=== PATIENT | female | born 1970 | race Caucasian/White ===

== ENCOUNTER 2016-07-24 07:41 | Emergency (ER) | payer BC ==
[~2016-07-24] VITALS: Ht 160 cm; Wt 73.0 kg
[~2016-07-24 07:41] MED LIST: BUSP30TA2 PO; CYAN3INJ IM; ERGO500037 PO; FOLI400T41 PO; IVIG IV; LAMO100T PO; LAMO100T16 PO; ONDA8TAB6 PO; OXYC1TAB3 PO; PANT40TA PO; PREG1CAP28 PO; PROM25TA PO; TPM100 PO; TRAM-10 PO; WARF4TAB PO; WARF6TAB PO
[2016-07-24 07:44] VITALS: TEMP 36.5; Ht 160 cm; Wt 73.0 kg
[2016-07-24] MEDS ORDERED: HYDROmorphone INJ 1 MG/ML SYR IV STA ×2 (07:59→09:33)
[2016-07-24] MEDS ORDERED: CEFTRIAXONE SOD INJ 1 GM ADDVIAL IV STA (07:59)
[2016-07-24] MEDS ORDERED: ONDANSETRON INJ 2 MG/ML 2 ML VIAL IV STA (07:59)
[2016-07-24] MEDS ORDERED: KETOROLAC TROMETHAMINE 30 MG/ML VIAL IV STA (07:59)
[2016-07-24] MEDS ORDERED: SODIUM CHLORIDE 0.9% 1000ML 1,000 ML IV STA ×2 (07:59→09:49)
--- NOTE | 2016-07-24 08:01 | EMERGENCY ROOM VISIT NOTE ---
History Report prepared by Jose: Cyn Barbosa Under the Supervision of: Dr. Riley Strickland M.D. First contact with patient: 07:49 Chief Complaint: ABDOMINAL PAIN Stated Complaint: LOWER ABD. AND BACK PAIN, VOMITING, FREQ. URINE Nursing Triage Summary: pt c/o lower abd pain and back pain on right side. day was urinating blood took pyriudum. had ivig yesterday. hx of kidney stones History of Present Illness The patient is a 46 year old female who presents to the Emergency Room with complaints of worsening abdominal pain for the past 2 days. She rates her discomfort as a 10/10 and notes the pain is located in her lower abdomen and right sided back. She has also been very nauseous but has not vomited. The patient states 2 days ago she started experiencing "severe hematuria". She took Pyridium she had at home, and that provided temporary relief. She had IV-IG administered here at [facility] yesterday for a history of immunodeficiency and states the hematuria has persisted since then. The patient does have a history of kidney stones and notes the pain feels similar. 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 A total of 10 systems reviewed and were otherwise negative. Past Medical & Surgical Medical Problems: (1) ANXIETY STATE NOS (2) Cholecystectomy (3) Clostridium difficile colitis (4) GASTROINTEST HEMORR NOS (5) IGG Deficiency (6) Immunodeficiency disorder (7) INTESTINAL INFECTION DUE TO CLOSTRIDIUM DIFFICILE (8) Left portal vein thrombosis (9) Ulcer Surgical Problems: (1) H/O section (2) H/O oophorectomy Family History Patient reports no known family medical history. Social History Smoking Status: Never Smoker Alcohol Use: none Drug Use: none Marital Status: Housing Status: lives with family Current/Historical Medications Scheduled Buspirone Hcl (Buspirone Hcl), 30 MG PO BID Cyanocobalamin (Vitamin B-12 Inj), 1 ML IM [id number] Docusate Sodium (Colace), 1 CAP PO BID Ergocalciferol (Vitamin D 80422 Unit), 50,000 UNIT PO WK Folic Acid (Folvite), 400 MCG PO QAM Lamotrigine (Lamictal), 200 MG PO HS Lamotrigine (Lamictal), 200 MG PO QAM Pantoprazole (Protonix), 40 MG PO BID Pregabalin (Lyrica), 75 MG PO HS Sennosides (Senokot), 8.6 MG PO HS Sulfa/Trimethoprim (Bactrim Ds 800MG/160MG), 1 TAB PO BID Topiramate (Topiramate), 100 MG PO BID Warfarin Sodium (Coumadin), 4 MG PO Tuesday and Tuesday Warfarin Sodium (Coumadin), 6 MG PO DIRECTED [Ivig], 1 DOSE IV MONTHLY Scheduled PRN Ondansetron Hcl (Zofran), 8 MG PO Q6 PRN for Nausea or Vomiting Oxycodone Ir (Roxicodone Ir), 5 MG PO Q4H PRN for Severe Pain Oxycodone/Acetaminophen 5MG/325MG (Percocet 5MG/325MG), 1-2 TAB PO Q4H PRN for Pain Promethazine (Phenergan), 25 MG PO Q8 PRN for Nausea or Vomiting Tramadol (Ultram), 100 MG PO Q6H PRN for Pain Allergies Coded Allergies: Morphine (Verified Allergy, Severe, HIVES, 07/24/16) WITH INJECTABLE MORPHINE Aspirin (Verified Allergy, Intermediate, HIVES, 07/24/16) Amoxicillin (Verified Allergy, Mild, RASH, 07/24/16) Azithromycin (Verified Allergy, Mild, RASH, 07/24/16) Penicillins (Verified Allergy, Mild, RASH, 07/24/16) Ibuprofen (Verified Allergy, Unknown, Unknown, 07/24/16) Pt reports to RN that she has ibuprofen allergy Corticosteroids (Verified Adverse Reaction, Intermediate, AGGRESSIVE, ) Prednisone (Verified Adverse Reaction, Intermediate, AGGRESSIVE, 07/24/16) Gabapentin (Verified Adverse Reaction, Unknown, HYPERACTIVE, 07/24/16) Venlafaxine (Verified Adverse Reaction, Unknown, memory loss, sleepwalking , 07/24/16) patient Physical Exam Vital Signs Date Time Temp Pulse Resp B/P Pulse Ox O2 Delivery O2 Flow Rate FiO2 07/24/16 10:33 86 18 118/81 96 07/24/16 09:19 93 18 123/77 98 Room Air 07/24/16 07:44 36.5 79 18 89/59 100 Room Air Physical Exam GENERAL: Patient is a healthy-appearing well-nourished HEAD: Normocephalic atraumatic EYES: Ocular movements intact pupils equal and react to light OROPHARYNX mucous membranes are moist no exudates present no erythema or edema present NECK: Supple no nuchal rigidity CHEST: Good equal expansion LUNGS: Clear and equal to auscultation CARDIAC: Normal S1 and S2 ABDOMEN: Soft, slight tenderness in suprapubic area, no guarding BACK: No CVA tenderness EXTREMITIES: No pain upon palpation normal muscle strength in all groups no clubbing cyanosis or edema NEURO: Patient is following commands is answering questions appropriately. Alert and oriented x3 Cranial Nerves 2-12 grossly intact Medical Decision & Procedures ER Provider Diagnostic Interpretation: This X-Ray was reviewed and interpreted by myself and the radiologist. KUB IMPRESSION: Nonobstructed abdominal bowel gas pattern noting moderate colonic fecal retention. Electronically signed by: Shreyas Mcduffie M.D. 07/24/2016 9:02 AM This Ultrasound was reviewed and interpreted by the radiologist and reviewed by myself. ULTRASOUND KIDNEYS AND BLADDER IMPRESSION: 1. There is mild right-sided hydronephrosis. This raises concern for nonobstructing renal calculus; however, no calculi were seen by CT on 03/19/2016. 2. The left kidney is normal in size and without hydronephrosis. 3. The bladder was decompressed and could not be evaluated. Electronically signed by: Shreyas Mcduffie M.D. 07/24/2016 9:33 AM Laboratory Results 07/24/16 08:15 Red Blood Count 4.27, Mean Corpuscular Volume 84.1, Mean Corpuscular Hemoglobin 28.3, Mean Corpuscular Hemoglobin Concent 33.7, Mean Platelet Volume 9.3, Neutrophils (%) (Auto) 79.2, Lymphocytes (%) (Auto) 14.3, Monocytes (%) (Auto) 5.8, Eosinophils (%) (Auto) 0.3, Basophils (%) (Auto) 0.2, Neutrophils # (Auto) 7.74, Lymphocytes # (Auto) 1.40, Monocytes # (Auto) 0.57, Eosinophils # (Auto) 0.03, Basophils # (Auto) 0.02 07/24/16 08:15 Test 07/24/16 08:15 07/24/16 09:15 07/24/16 09:20 07/24/16 10:21 White Blood Count 9.78 K/uL (4.8-10.8) Red Blood Count 4.27 M/uL (4.2-5.4) Hemoglobin 12.1 g/dL (12.0-16.0) Hematocrit 35.9 % (37-47) Mean Corpuscular Volume 84.1 fL (80-100) Mean Corpuscular Hemoglobin 28.3 pg (25-34) Mean Corpuscular Hemoglobin Concent 33.7 g/dl (32-36) Platelet Count 274 K/uL (130-400) Mean Platelet Volume 9.3 fL (7.4-10.4) Neutrophils (%) (Auto) 79.2 % Lymphocytes (%) (Auto) 14.3 % Monocytes (%) (Auto) 5.8 % Eosinophils (%) (Auto) 0.3 % Basophils (%) (Auto) 0.2 % Neutrophils # (Auto) 7.74 K/uL (1.4-6.5) Lymphocytes # (Auto) 1.40 K/uL (1.2-3.4) Monocytes # (Auto) 0.57 K/uL (0.11-0.59) Eosinophils # (Auto) 0.03 K/uL (0-0.5) Basophils # (Auto) 0.02 K/uL (0-0.2) RDW Standard Deviation 43.8 fL (36.4-46.3) RDW Coefficient of Variation 14.3 % (11.5-14.5) Immature Granulocyte % (Auto) 0.2 % Immature Granulocyte # (Auto) 0.02 K/uL (0.00-0.02) Anion Gap 8.0 mmol/L (3-11) Est Creatinine Clear Calc Drug Dose 54.9 ml/min Estimated GFR () 61.9 Estimated GFR (Non- 53.4 BUN/Creatinine Ratio 11.7 (10-20) Calcium Level 8.5 mg/dl (8.5-10.1) Total Bilirubin 0.3 mg/dl (0.2-1) Direct Bilirubin < 0.1 mg/dl (0-0.2) Aspartate Amino Transf (AST/SGOT) 11 U/L (15-37) Alanine Aminotransferase (ALT/SGPT) 17 U/L (12-78) Alkaline Phosphatase 137 U/L (45-117) Total Protein 7.8 gm/dl (6.4-8.2) Albumin 3.3 gm/dl (3.4-5.0) Lipase 159 U/L (73-393) Prothrombin Time 53.8 SECONDS (9.0-12.0) Prothromb Time International Ratio 4.7 (0.9-1.1) Urine Color ORANGE Urine Appearance TURBID (CLEAR) Urine pH (4.5-7.5) Urine Specific [place] (1.000-1.030) Urine Protein NEG (NEG) Urine Glucose (UA) (NEG) Urine Ketones (NEG) Urine Occult Blood (NEG) Urine Nitrite (NEG) Urine Bilirubin (NEG) Urine Urobilinogen (NEG) Urine Leukocyte Esterase (NEG) Urine Test NEG (NEG) Labs reviewed by ED physician. Medications Administered Medications (Trade) Dose Ordered Sig/Amanda Route Start Time Stop Time Status Last Admin Dose Admin Sodium Chloride (Nss 1000ml) 1,000 ml @ 999 mls/hr Q1H1M STAT IV 07/24/16 07:59 07/24/16 08:59 DC 07/24/16 08:25 999 MLS/HR Hydromorphone HCl (Dilaudid Inj) 1 mg NOW STAT IV 07/24/16 07:59 07/24/16 08:04 DC 07/24/16 08:24 1 MG Ketorolac Tromethamine (Toradol Inj) 30 mg NOW STAT IV 07/24/16 07:59 07/24/16 08:04 DC 07/24/16 08:25 30 MG Ceftriaxone Sodium (Rocephin Inj) 1 gm NOW STAT IV 07/24/16 07:59 07/24/16 08:04 DC 07/24/16 08:25 1 GM Ondansetron HCl (Zofran Inj) 4 mg NOW STAT IV 07/24/16 07:59 07/24/16 08:04 DC 07/24/16 08:24 4 MG Potassium Chloride (Klor-Con M10) 40 meq NOW STAT PO 07/24/16 08:50 07/24/16 08:51 DC 07/24/16 09:09 40 MEQ Hydromorphone HCl (Dilaudid Inj) 1 mg NOW STAT IV 07/24/16 09:33 07/24/16 09:35 DC 07/24/16 09:41 1 MG Metoclopramide HCl (Reglan Inj) 10 mg NOW STAT IV 07/24/16 09:33 07/24/16 09:35 DC 07/24/16 09:41 10 MG Magnesium Citrate 296 ml 296 ml NOW STAT PO 07/24/16 09:46 07/24/16 09:47 DC 07/24/16 09:46 296 ML Sodium Chloride (Nss 1000ml) 1,000 ml @ 999 mls/hr Q1H1M STAT IV 07/24/16 09:49 07/24/16 10:49 DC 07/24/16 09:49 999 MLS/HR Heparin Sodium (Porcine) (Heparin 100 Unit/ml 5ml Flush) 5 ml STK-MED ONCE .ROUTE 07/24/16 10:21 07/24/16 10:24 DC 07/24/16 10:21 5 ML ED Course 0754: Past medical records reviewed. The patient was evaluated in room B6. A complete history and physical examination was performed. 0759: Zofran 4 mg IV, Rocephin 1 gm IV, Toradol 30 mg IV, Dilaudid 1 mg IV, NSS 1000 ml @ 999 mls/hr IV. 0850: Potassium Chloride 40 meq IV. 0933: Reglan 10 mg IV, Dilaudid 1 mg IV. 0935: I reevaluated the patient. She is resting comfortably. 0946: Magnesium Citrate 296 ml PO. 0949: NSS 1000 ml @ 999 mls/hr IV. 1000: I reevaluated the patient. She is feeling much better. I discussed her results and discharge instructions and she verbalized complete understanding and agreement. Medical Decision Prior records/ancillary studies reviewed. Triage Nursing notes reviewed. The patient's history was concerning for abdominal pain. Differential diagnosis: Etiologies such as appendicitis, diverticulitis, PUD, biliary pathology, UTI, pancreatitis, obstruction, mesenteric ischemia, aortic pathology, infections, inflammatory bowel disease, renal colic, as well as others were entertained. This is a 46-year-old female who presents emergency department complaining of hematuria since . The patient does have a low blood in her urine and I believe she may be suffering from a kidney stone according to the hydronephrosis on the ultrasound. Because of this reason an IV was like Toradol. The patient is on the no narcotics treatment plan program however the fact that she has a kidney stone and believe outweighs this at this point. For this reason the patient will be placed on Bactrim started on Percocet along with stool softeners. I did recommend magnesium citrate for bowel clean out. Patient is going to follow-up with urology. Patient was in agreement with the treatment plan. [place] Drug Monitoring Program Search Results: patient reviewed within database, see additional documentation Drug Monitoring Findings: The patient gets 200 tablets of Tramadol refilled as needed by her Primary Care Physician. Impression Primary Impression: Flank pain Additional Impressions: Kidney stone UTI (urinary tract infection) Constipation Scribe Attestation The scribe's documentation has been prepared under my direction and personally reviewed by me in its entirety. I confirm that the note above accurately reflects all work, treatment, procedures, and medical decision making performed by me. Departure Information Dispostion Home / Self-Care Prescriptions Docusate Sodium (COLACE) 100 Mg Cap 1 CAP PO BID for 10 Days, #20 CAP Prov: Riley Strickland MD 07/24/16 Sennosides (SENOKOT) 8.6 Mg Tab 8.6 MG PO HS for 10 Days, #10 TAB Prov: Riley Strickland MD 07/24/16 Sulfa/Trimethoprim (Bactrim Ds 800MG/160MG) Tab 1 TAB PO BID for 7 Days, #14 TAB Prov: Riley Strickland MD 07/24/16 Oxycodone/Acetaminophen 5MG/325MG (PERCOCET 5MG/325MG) Tab 1-2 TAB PO Q4H Y for Pain, #14 TAB Prov: Riley Strickland MD 07/24/16 Referrals Lucrecia Patton D.ODillon (PCP) Patient Instructions Constipation, ED UTI Cystitis Female, Kidney Stones - [facility], Kidney Stones Eval, Kidney Stones Prevent, Kidney Stones Risk, My [facility] Additional Instructions Hold COumadin for 3 days (INR=4.7) Follow up with DR Fraire' office Take 1/2 bottle of Mag Citrate Repeat second half in six hours You received narcotic or benzodiazepene medication while in the emergency room today. Do not drive, operate heavy machinery, or drink alcohol under the influence of this medication. Take Percocet for breakthrough pain Radiographs and CTs will be reread by a radiologist in the morning. Culture results are usually available in approx 48 hours You have been examined and treated today on an emergency basis only. This is not a substitute for, or an effort to provide, complete comprehensive medical care. It is impossible to recognize and treat all injuries or illnesses in a single emergency department visit. It is therefore important that you follow up closely with Dr Patton. Call as soon as possible for an appointment. Thank you for your time and consideration. I look forward to speaking with you again soon. Please don't hesitate to call us if you have any questions. Problem Qualifiers Additional Impressions: UTI (urinary tract infection) Urinary tract infection type: acute cystitis Hematuria presence: with hematuria Qualified Codes: N30.01 - Acute cystitis with hematuria Constipation Constipation type: slow transit constipation Qualified Codes: K59.01 - Slow transit constipation
[2016-07-24 08:24] LABS: BASO % 0.2 %; BASO ABS # 0.02 K/uL (0-0.2); COMPLETE YES; EOS % 0.3 %; HEMATOCRIT 35.9 % (37-47); IG% 0.2 %; LYMPH % 14.3 %; MEAN CELL VOLUME 84.1 fL (80-100); MEAN CORPUSCULAR HEMOGLOBIN 28.3 pg (25-34); MEAN CORPUSCULAR HGB CONC 33.7 g/dl (32-36); MEAN PLATELET VOLUME 9.3 fL (7.4-10.4); MONO % 5.8 %; NEUT % 79.2 %; PLATELET COUNT 274 K/uL (130-400); RED BLOOD COUNT 4.27 M/uL (4.2-5.4); WHITE BLOOD COUNT 9.78 K/uL (4.8-10.8)
[2016-07-24 08:40] LABS: ALT/SGPT 17 U/L (12-78); BLOOD UREA NITROGEN 14 mg/dl (7-18); BUN/CREATININE RATIO 11.7 (10-20); CALCIUM 8.5 mg/dl (8.5-10.1); CARBON DIOXIDE 23 mmol/L (21-32); CHLORIDE 112 mmol/L (98-107); GLUCOSE 129 mg/dl (70-99); POTASSIUM 3.2 mmol/L (3.5-5.1); SODIUM 143 mmol/L (136-145)
[2016-07-24 08:43] LABS: ALKALINE PHOSPHATASE 137 U/L (45-117); AST/SGOT 11 U/L (15-37)
[2016-07-24] MEDS ORDERED: POTASSIUM CHLORIDE 10 MEQ TABCR PO STA (08:50)
--- NOTE | 2016-07-24 09:04 | DIAGNOSTIC IMAGING REPORT ---
KUB CLINICAL HISTORY: Pelvic pain. FINDINGS: 2 AP abdominal radiographs are correlated with abdominal CT dated 03/19/2016. There is a nonobstructed abdominal bowel gas pattern noting moderate colonic fecal retention. Small phleboliths are identified in the pelvis. Cholecystectomy clips are noted. There is no radiographic evidence of nephrolithiasis. The bony structures appear intact. IMPRESSION: Nonobstructed abdominal bowel gas pattern noting moderate colonic fecal retention. Electronically signed by: Shreyas Mcduffie M.D. 07/24/2016 9:02 AM Dictated Date/Time: 07/24/2016 9:01 AM
[2016-07-24 09:32] LABS: REVIEW REQ? NO
[2016-07-24 09:33] LABS: MANUAL MICROSCOPIC REQUIRED? NO; URINE APPEARANCE TURBID (CLEAR); URINE COLOR ORANGE
[2016-07-24] MEDS ORDERED: METOCLOPRAMIDE HCL INJ 5 MG/ML 2 ML VIAL IV STA (09:33)
[2016-07-24 09:34] LABS: SULFASALICYLIC ACID NEG (NEG)
--- NOTE | 2016-07-24 09:35 | DIAGNOSTIC IMAGING REPORT ---
ULTRASOUND KIDNEYS AND BLADDER CLINICAL HISTORY: Pelvic pain. Hematuria. COMPARISON STUDY: Abdominal CT dated 03/19/2016. KUB dated 07/24/2016. TECHNIQUE: Real-time, grayscale, and color flow sonography of the kidneys and bladder is performed. Images are reviewed in the transverse and longitudinal planes. FINDINGS: Kidneys: The kidneys are normal in size and echotexture. The right kidney measures 9.7 x 4.7 x 4.9 cm and the left kidney measures 9.1 x 5.3 x 4.4 cm. There is mild right-sided hydronephrosis. No left hydronephrosis is seen. No shadowing renal calculi are identified. A 1.3 cm cyst is noted in the left lower pole. There is no sonographic evidence of contour deforming renal mass lesion. No perinephric fluid is identified. Bladder: The bladder is decompressed and not well assessed. Ureteral jets could not be evaluated. IMPRESSION: 1. There is mild right-sided hydronephrosis. This raises concern for nonobstructing renal calculus; however, no calculi were seen by CT on 03/19/2016. 2. The left kidney is normal in size and without hydronephrosis. 3. The bladder was decompressed and could not be evaluated. Electronically signed by: Shreyas Mcduffie M.D. 07/24/2016 9:33 AM Dictated Date/Time: 07/24/2016 9:30 AM
[2016-07-24 09:36] LABS: ZZUR CULT IF INDIC CLEAN CATCH YES
[2016-07-24 09:44] LABS: INR 4.7 (0.9-1.1); PROTHROMBIN TIME (PATIENT) 53.8 SECONDS (9.0-12.0)
[2016-07-24] MEDS ORDERED: MAGNESIUM CITRATE 296 ML/BTL PO STA (09:46)
[2016-07-24] MEDS ORDERED: OXYC-57 PO (09:55)
[2016-07-24] MEDS ORDERED: DOCU-94 PO (09:55)
[2016-07-24] MEDS ORDERED: SENN1TAB77 PO (09:55)
[2016-07-24] MEDS ORDERED: SULF800T23 PO (09:55)
[2016-07-24 10:33] VITALS: BP 118/81; PULSE 86; O2SAT 96
[2016-07-24 11:24] LABS: PREG INTERNAL NEGATIVE QC NEG CLEAR BACKGROUND; PREG INTERNAL POSITIVE QC POS CONTROL LINE
== END 2016-07-24 10:34 | disposition home or self-care (01) ==
LOC: C.EDB 07:43
DX: N39.0 Urinary tract infection, site not specified (principal); K59.01 Slow transit constipation; R11.0 Nausea; Z79.01 Long term (current) use of anticoagulants; Z79.899 Other long term (current) drug therapy